=== PATIENT | female | born 1995 | race African-American/Black ===

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

== ENCOUNTER 2018-06-12 12:01 | Outpatient (CLI) | payer OTHER | END 2018-06-12 12:06 | disposition short-term general hospital (02) | LOC: AMB 12:01 | DX: T63.441A Toxic effect of venom of bees, accidental (unintentional), initial encounter (principal); Y92.89 Other specified places as the place of occurrence of the external cause | CPT/HCPCS: A0425; A0427 ==

== ENCOUNTER 2018-06-12 12:08 | Emergency (ER) | payer OTHER ==
[~2018-06-12] VITALS: Ht 157.5 cm; Wt 67.1 kg
== END 2018-06-12 15:07 | disposition home or self-care (01) ==
LOC: ED 12:08
DX: T63.441A Toxic effect of venom of bees, accidental (unintentional), initial encounter (principal)
CPT/HCPCS: 96374; 99284; J2930

== ENCOUNTER 2022-06-28 12:34 | Observation (INO) | payer OTHER ==
[~2022-06-28] VITALS: Ht 157.5 cm; Wt 70.4 kg
[2022-06-28 13:05] VITALS: BP 134/93; TEMP 98
[2022-06-28 14:34] LABS: PLATELET COUNT 430 K/uL (152-353)
[2022-06-28 14:48] LABS: POTASSIUM 3.8 mmol/L (3.6-5.2)
[2022-06-28 17:35] VITALS: BP 127/86; TEMP 98
[2022-06-28 18:40] VITALS: BP 128/92; TEMP 97.6; Ht 157.5 cm; Wt 70.4 kg
[2022-06-28] MEDS ORDERED: PENICILLN VK500 MG PO (19:14)
[2022-06-28 20:00] VITALS: BP 123/80; TEMP 98.3
[2022-06-29] VITALS: BP 117/74; TEMP 98.8
[2022-06-29 04:00] VITALS: BP 106/67; TEMP 98.1
[2022-06-29 05:18] LABS: PLATELET COUNT 346 K/uL (152-353)
[2022-06-29 05:30] LABS: POTASSIUM 3.8 mmol/L (3.6-5.2)
[2022-06-29 08:00] VITALS: BP 109/71; TEMP 98.4
[2022-06-29] MEDS ORDERED: LEVAQUIN250 MG PO (09:54)
== END 2022-06-29 11:19 | disposition home or self-care (01) ==
LOC: ED 12:34 → MED/SURG 17:00
PROVIDERS: Emergency Medicine; ADMIT Internal Medicine; ATTEND Internal Medicine
DX: E11.65 Type 2 diabetes mellitus with hyperglycemia (principal); R74.01 Elevation of levels of liver transaminase levels; N39.0 Urinary tract infection, site not specified
CPT/HCPCS: 80053; 80074; 81002; 81025; 82140; 82948; 83036; 83690; 85027; 87635; 96360; 96361; 96367; 96374; 96375; 99220; 99284; G0378; J0696; J2405; J3490; U0003